=== PATIENT | female | born 1990 | race Asian ===

== ENCOUNTER 2017-08-08 08:50 | Emergency (ER) | payer SELFPAY ==
[~2017-08-08] VITALS: Ht 165.1 cm; Wt 54.4 kg
[2017-08-08 08:56] VITALS: BP_SYST 124
[2017-08-08] MEDS ORDERED: LIDOCAINE 1% 10 MG/ML, 20 ML MDV IJ ONE (09:15)
[2017-08-08] MEDS ORDERED: BACITRACIN 1 GM OINT TP ONE (10:21)
[2017-08-08 10:45] VITALS: BP_SYST 112
== END 2017-08-08 10:45 | disposition home or self-care (01) ==
LOC: SED 08:50
DX: S61.412A Laceration without foreign body of left hand, initial encounter (principal); W26.0XXA Contact with knife, initial encounter; Y93.89 Activity, other specified; Y92.89 Other specified places as the place of occurrence of the external cause; Y99.8 Other external cause status
CPT/HCPCS: 12001; 99283; J2001